=== PATIENT | female | born 1980 | race Caucasian/White ===

== ENCOUNTER → 2020-12-15 | Outpatient (CLI) | payer BC ==
[2020-12-15 14:07] LABS: Basophils % (A) 0 %; Eosinophils # (A) 0.1 k/uL (0-0.7); Eosinophils % (A) 1 %; HCT 46.8 % (34.0-46.0); HGB 15.6 gm/dL (11.4-16.0); Lymphocytes # (A) 1.3 k/uL (1.0-4.8); Lymphocytes % (A) 14 %; MCH 32.4 pg (25.0-35.0); MCHC 33.3 g/dL (31.0-37.0); MCV 97.2 fL (80.0-100.0); Mean Platelet Volume 7.1; Monocytes # (A) 0.5 k/uL (0-1.0); Monocytes % (A) 5 %; Neutrophils # (A) 7.3 k/uL (1.3-7.7); Neutrophils % (A) 79 %; Platelet Count 389 k/uL (150-450); RBC 4.82 m/uL (3.80-5.40); RDW 12.2 % (11.5-15.5); WBC 9.3 k/uL (3.8-10.6)
[2020-12-15 14:10] LABS: African American GFR (CKD) >90 (>60 ml/min/1.73 sqM); Anion Gap 14 mmol/L; Blood Urea Nitrogen 15 mg/dL (7-17); Carbon Dioxide 21 mmol/L (22-30); Chloride 102 mmol/L (98-107); Non-African American GFR(CKD) 82 (>60 ml/min/1.73 sqM); Potassium 4.3 mmol/L (3.5-5.1); Sodium 137 mmol/L (137-145)
== END | disposition home or self-care (01) ==
LOC: LABPAT 12:26
PROVIDERS: ATTEND Urology
DX: Z01.818 Encounter for other preprocedural examination (principal); N20.1 Calculus of ureter
CPT/HCPCS: 80051; 82565; 84520; 85025

== ENCOUNTER 2020-12-21 05:44 | Day surgery (SDC) | payer BC ==
[2020-12-18 10:14] VITALS: BMI 31.5
--- NOTE | 2020-12-18 19:05 | P.GSHP ---
History of Present Illness H&P Date: 12/17/20 Chief Complaint: Left renal colic The patient is a 40-year-old white female with a history of urolithiasis. She now presents with left renal colic. The onset of symptoms was 12/08/2020. A computed tomography scan showed mild left hydronephrosis due to a 5.5 mm left proximal ureteral calculus. The calculus is seen on a plain radiograph. I had a lengthy discussion with the patient regarding options, which include observation with spontaneous passage, ureteroscopy with laser lithotripsy, and extracorporal shockwave lithotripsy (ESWL). She has elected to undergo the latter. - Constitutional Constitutional: Denies chills, Denies fever - Gastrointestinal Gastrointestinal: Reports nausea - Genitourinary (Female) Genitourinary: Reports flank pain, Reports hematuria Medications and Allergies Home Medications Medication Instructions Recorded Confirmed Type Ascorbic Acid [Vitamin C] 500 mg PO DAILY 12/18/20 12/18/20 History Aspirin [Adult Low Dose Aspirin EC] 81 mg PO DAILY 12/18/20 12/18/20 History Cranberry Fruit Extract [Cranberry] 200 mg PO 12/18/20 History Ergocalciferol (Vitamin D2) 50 mcg PO DAILY 12/18/20 12/18/20 History [Vitamin D2 (2000 Iu)] Ferrous Sulfate [Feosol] 325 mg PO DAILY 12/18/20 12/18/20 History Fludrocortisone [Florinef] 0.1 mg PO MOWEFR 12/18/20 12/18/20 History Hydrocortisone [Cortef] 5 mg PO 5XD 12/18/20 12/18/20 History Tova 1 tab PO DAILY 12/18/20 History Levothyroxine Sodium [Levoxyl] 50 mcg PO DAILY 12/18/20 12/18/20 History Meclizine [Antivert] 25 mg PO TID 12/18/20 12/18/20 History Pantoprazole [Protonix] 40 mg PO DAILY 12/18/20 12/18/20 History Potassium Chloride ER [K-Dur 10] 10 meq PO DAILY 12/18/20 12/18/20 History Simvastatin [Zocor] 20 mg PO DAILY 12/18/20 12/18/20 History Tamsulosin [Flomax] 0.4 mg PO DAILY 12/18/20 12/18/20 History Vitamin E 1 day PO DAILY 12/18/20 History Allergies Allergy/AdvReac Type Severity Reaction Status Date / Time codeine Allergy rash/itchin Verified 12/18/20 09:53 g latex Allergy Rash/Hives Verified 12/18/20 09:53 wheat Allergy does not Verified 12/18/20 09:53 eat r/t celiac dx albuterol AdvReac "heart Verified 12/18/20 09:53 rate goes up X3" codone Allergy rash/itchin Uncoded 12/18/20 09:53 g Surgical - Exam - General well developed, well nourished, no distress - Neck no masses, trachea midline - Respiratory normal respiratory effort, clear to auscultation - Cardiovascular Rhythm: regular Abnormal Heart Sounds: no systolic murmur, no diastolic murmur, no rub, no S3 Gallop, no S4 Gallop, no click, no other - Abdomen Abdomen: soft, tender (left-sided tenderness), no guarding, no rigid, no rebound - Psychiatric oriented to time, oriented to person, oriented to place, speech is normal, memory intact Results - Imaging Abdominal x-ray: report reviewed, image reviewed CT scan - abdomen: report reviewed, image reviewed Assessment and Plan (1) Calculus of ureter Status: Acute Code(s): N20.1 - CALCULUS OF URETER SNOMED Code(s): 68569280 Plan: I discussed with the patient the treatment of the calculus with ESWL. I explained the possible need for repeat ESWL or alternative treatment in the event of treatment failure or incomplete fragmentation. I discussed the risks of ESWL, including anesthesia, collateral damage to other organs, and [place]str[place]. The possible need for a secondary intervention such as a stent or ureteroscopy was discussed. The patient expressed an understanding of the procedure and risks including but not limited to bleeding, infection, obstruction, and rarely injury to other organs such as the liver or spleen. The patient understands that due to the constraints of the lithotriptor schedule the procedure will be performed by Dr. Garduno. Alternative treatment options for a ureteral calculus include observation with spontaneous passage and ureteroscopy with stone manipulation. The pros, cons, and risks of each approach have been reviewed. Following a lengthy discussion, as a result of shared decision making, the patient has elected to proceed with ESWL.
[~2020-12-21 05:44] MED LIST: LACTATED RINGERS 1,000 ML IV SCH
[2020-12-21 06:45] VITALS: TEMP 97.1
[2020-12-21 06:54] LABS: Glucose,Whole Blood 98 mg/dL (75-99)
[2020-12-21] MEDS ORDERED: HYDROCORTISONE SUCCINATE 100 MG/2 ML VIAL IV ONE (06:59)
--- NOTE | 2020-12-21 07:29 | XR ---
EXAMINATION TYPE: XR KUB DATE OF EXAM: 12/21/2020 Comparison: None Clinical History: 40-year-old female KIDNEY STONE Findings: Nonobstructive bowel gas pattern. Mild stool burden, mild to moderate within the right side of the a bdomen. Calcifications in the pelvis likely represent phleboliths. Rounded calcification projecting just medial to the expected right kidney may be in the renal collect ing system or upper ureter. An additional 10 x 7 mm calcification is also present on the right. Sugge stion of a faint 3 mm calcification on the left. Cholecystectomy clips. IMPRESSION: 1. Bilateral nephrolithiasis suggested measuring up to 1 cm on the right and 3 mm on the left. 2. In addition, there is a 1.3 cm rounded calcification possibly within the right renal collecting sy stem or upper ureter.
[2020-12-21] MEDS ORDERED: MIDAZOLAM 2 MG/2 ML VIAL ONE (07:48)
[2020-12-21] MEDS ORDERED: KETAMINE 10 MG/ML 20 ML VIAL ONE (07:48)
[2020-12-21] MEDS ORDERED: fentaNYL (PF) 50 MCG/ML 2 ML AMP ONE (07:48)
[2020-12-21] MEDS ORDERED: LIDOCAINE 1% INJ 10MG/ML (20 ML MDV) ONE (07:48)
[2020-12-21] MEDS ORDERED: PROPOFOL 10 MG/ML 20 ML VIAL IV ONE (07:48)
[2020-12-21] MEDS ORDERED: SODIUM CHLORIDE 0.9% 500 ML 500 ML IV ONE (08:51)
[2020-12-21 08:58] VITALS: BP 115/74; PULSE 93; RESP 16
--- NOTE | 2020-12-21 10:09 | P.OP ---
Date of Procedure: 12/21/20 Preoperative Diagnosis: left ureteral calculi Postoperative Diagnosis: same Procedure(s) Performed: Left ESWL Implants: none Anesthesia: MARKELL Surgeon: Aram Garduno Estimated Blood Loss (ml): 0 Pathology: none sent Condition: stable Disposition: PACU Indications for Procedure: The patient is a 40-year-old white female with a history of urolithiasis. She now presents with left renal colic. The onset of symptoms was 12/08/2020. A computed tomography scan showed mild left hydronephrosis due to a 5.5 mm left proximal ureteral calculus. The calculus is seen on a plain radiograph. I had a lengthy discussion with the patient regarding options, which include observation with spontaneous passage, ureteroscopy with laser lithotripsy, and extracorporal shockwave lithotripsy (ESWL). She has elected to undergo the latter. KUB in the am showed stone migrated to distal ureter, patient pain was also in the LLQ. Operative Findings: left distal ureteral stone Description of Procedure: The patient was taken the operating suite and placed in the supine position on the fluoroscopy table. The distal left ureteral calculus was localized using biplanar fluoroscopy. Intravenous sedation was given. Lithotripsy was performed using the Dornier compact delta unit. The patient was treated at level 4 and gradually increased to 5J at a rate of 80 shocks per minute. The patient was given a total of 3000 shocks to ensure adequate fragmentation. repeat imaging at end of cases showed minimal residual stone and good fragmentation. Patient tolerated procedure well and left the operative room awake and in satisfactory condition.
== END 2020-12-21 09:30 | disposition home or self-care (01) ==
LOC: ORWHC2ENDO 05:44
PROVIDERS: ATTEND Urology
DX: N13.2 Hydronephrosis with renal and ureteral calculous obstruction (principal); M19.90 Unspecified osteoarthritis, unspecified site; K21.9 Gastro-esophageal reflux disease without esophagitis; E07.9 Disorder of thyroid, unspecified; E27.1 Primary adrenocortical insufficiency; Z88.5 Allergy status to narcotic agent; Z88.8 Allergy status to other drugs, medicaments and biological substances; Z91.040 Latex allergy status; Z79.82 Long term (current) use of aspirin; Z79.890 Hormone replacement therapy; Z79.899 Other long term (current) drug therapy; Z91.018 Allergy to other foods
CPT/HCPCS: 81025; 74018; 50590; J2250; J1720; J2001; J3010; J2704

== ENCOUNTER → 2020-12-30 | Outpatient (CLI) | payer BC ==
--- NOTE | 2020-12-30 16:24 | XR ---
KUB HISTORY: N 20.1 Frontal KUB and 2 images correlated prior KUB 12/21/2020 The calcifications seen in the right paraspinal location on prior exam are no longer seen, small calc ification is present superimposed over the lower pole the right kidney measuring approximately 3 mm. Calcifications overlying the lower pole the left kidney are not seen, there is overlying bowel gas. S urgical clips present right upper quadrant. Pelvic calcifications are again noted, the calcification in the left hemipelvis which was previous identified on the left and ovoid shape is no longer seen, t here is overlying artifact. IMPRESSION: There is improvement of the right-sided calculi, possibly distal left ureteral calculus o n prior exam is no longer seen
== END | disposition home or self-care (01) ==
LOC: RADXRMAIN 13:43
PROVIDERS: ATTEND Urology
DX: N20.1 Calculus of ureter (principal)
CPT/HCPCS: 74018

== ENCOUNTER → 2023-07-12 | Outpatient (CLI) | payer BC ==
--- NOTE | 2023-07-12 14:23 | CT ---
EXAMINATION TYPE: CT abdomen pelvis w con CT DLP: 1775 mGycm, Automated exposure control for dose reduction was used. DATE OF EXAM: 07/12/2023 2:01 PM COMPARISON: CT abdomen pelvis most recent from 08/19/2014 . 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 Coronal and sagittal reformats were performed. FINDINGS: LOWER CHEST: Unremarkable ABDOMEN LIVER: A few subcentimeter hypoattenuating structures are demonstrated throughout the liver, which ar e too small to accurately characterize but statistically likely to represent simple hepatic cysts. GALLBLADDER AND BILE DUCTS: The gallbladder is surgically absent. PANCREAS: Unremarkable. SPLEEN: Unremarkable. ADRENAL GLANDS: Unremarkable. KIDNEYS AND URETERS: No evidence of hydronephrosis or renal calculus. The kidneys enhance symmetrical ly. Contrast is demonstrated within both collecting systems on the delayed phase. PELVIS BLADDER: Under distended but grossly unremarkable. REPRODUCTIVE: Unremarkable. ABDOMEN & PELVIS STOMACH AND BOWEL: Stomach and duodenum are unremarkable. Postsurgical changes with anastomosis in th e sigmoid region. No surrounding fluid collections. No focal bowel wall thickening or surrounding inf lammatory changes. The appendix is within normal limits. Enteric contrast reaches the terminal ileum. No evidence of bowel obstruction. PERITONEUM: No evidence of pneumoperitoneum or free fluid. VASCULATURE: Mild atherosclerotic calcifications are present throughout the abdominal aorta and its b ranches. No evidence of aortic aneurysm. MUSCULOSKELETAL: No acute osseous abnormalities LYMPH NODES: No gross evidence for lymphadenopathy. SOFT TISSUE/ABDOMINAL WALL: Small fat filled umbilical hernia. Scarring within the right anterior abd ominal wall. IMPRESSION: 1. No acute abdominal/pelvic process. 2. Postsurgical changes from sigmoid colon/ureter bladder fistula repair with anastomosis identified. No surrounding fluid collections.
== END | disposition home or self-care (01) ==
LOC: RADCTMAIN 11:55
PROVIDERS: ATTEND Family Medicine
DX: N32.2 Vesical fistula, not elsewhere classified (principal); Z98.890 Other specified postprocedural states
CPT/HCPCS: 74177; Q9967

== ENCOUNTER → 2024-09-18 | Outpatient (CLI) | payer BC ==
--- NOTE | 2024-09-20 22:49 | MM ---
Reason for Exam: Screening (asymptomatic). Last screening mammogram was performed 12 month(s) ago. Risk Values: Nimo 5 year model risk: 0.5%. NCI Lifetime model risk: 6.4%. Prior Study Comparison: 09/15/2022 Bilateral Screening Mammogram, [facility]. 09/20/2023 Bilateral Screening Mammogram, [facility]. Tissue Density: There are scattered areas of fibroglandular density. Findings: Analyzed By CAD. The pattern is symmetrical. Chronic nodularity is within the right breast No suspicious groups of microcalcifications, spiculated or lobular masses, architectural distortion or other secondary signs of malignancy are mammographically apparent. Overall Assessment: Benign, BI-RAD 2 Management: Screening Mammogram of both breasts in 1 year. A negative mammogram report should not preclude additional follow up of suspicious palpable abnormalities. Patient should continue monthly self breast exam. A clinical breast exam by your physician is recommended on an annual basis and results should be correlated with mammographic findings. Note on Nimo scores and lifetime risk: 1. A Nimo score greater than 3% is considered moderate risk. If this is the case, consider specialist referral to assess eligibility for a risk reducing agent. 2. If overall lifetime risk for the development of breast cancer is 20% or higher, the patient may qualify for future screening with alternating mammogram and breast MRI. [facility], , 09/20/2024 10:47 PM. Electronically signed and approved by: Sathya Vick D.O. Radiologis
== END | disposition home or self-care (01) ==
LOC: RADMAMWWP 14:25
PROVIDERS: ATTEND Obstetrics & Gynecology
DX: Z12.31 Encounter for screening mammogram for malignant neoplasm of breast (principal); R92.323 Mammographic fibroglandular density, bilateral breasts
CPT/HCPCS: 77063; 77067